=== PATIENT | female | born 1975 | race Caucasian/White ===

== ENCOUNTER 2024-03-13 08:10 | Observation (INO) ==
[~2024-03-13 08:10] MED LIST: Naloxone 0.4 mg VIAL 0.4 mg/ml 1 ml VIAL IV PRN; Ondansetron 4 mg VIAL 2 MG/ML 2 ml VIAL IV PRN; fentaNYL 100 mcg/2 ml 50 MCG/ML VIAL IV PRN
[2024-03-13] MEDS ORDERED: Tranexamic Acid 1 GM/100ML BAG 2,000 MG/200 ML BAG IV ONE (08:33)
[2024-03-13] MEDS ORDERED: ceFAZolin 2 GM PREMIX 2 GM/50 ML BAG ONE (08:33)
[2024-03-13 08:51] LABS: Rapid COVID-19 Molecular Undetected (Undetected)
[2024-03-13] MEDS: Lactated Ringers 1000 ml BAG 1,000 ML IV SCH ×2 (09:08→15:55)
[2024-03-13] MEDS ORDERED: Midazolam 2 mg/2 ml VIAL 1 mg/ml 2 ml VIAL (2 mg) ONE (09:45)
[2024-03-13] MEDS ORDERED: Propofol 10 MG/ML 20 ML BTL ONE ×3 (09:45→13:00)
[2024-03-13] MEDS ORDERED: fentaNYL 100 mcg/2 ml 50 MCG/ML VIAL ONE (09:45)
[2024-03-13] MEDS ORDERED: ROPIVACAINE 5 MG/ML 30 ML BTL (0.5%) ONE (10:30)
[2024-03-13] MEDS ORDERED: ceFAZolin 1 GM in Dextrose 1 GM/50 ML BAG ONE (10:56)
[2024-03-13] MEDS ORDERED: Lidocaine 2% PF 5 ML VIAL ONE (11:22)
[2024-03-13] MEDS ORDERED: Calcium Carb (TUMS) 500 mg CHEW TAB PO PRN (11:24)
[2024-03-13] MEDS ORDERED: Morphine 2 MG/ML SYRINGE IV PRN (11:24)
[2024-03-13] MEDS ORDERED: Lactulose 30 ml UDC PO PRN (11:24)
[2024-03-13] MEDS ORDERED: Ondansetron ODT 4 mg TAB 4 MG TAB PO PRN (11:24)
[2024-03-13] MEDS ORDERED: Magnesium Hydroxide LIQ 30 ML UDC PO PRN (11:24)
[2024-03-13] MEDS ORDERED: Phenylephrine IV 10 MG/ML 1 ml VIAL ONE (11:28)
[2024-03-13] MEDS: Buffered Lidocaine 1% SYRIN 1 ml INTRADERM ONE (16:20)
[2024-03-13] MEDS: ceFAZolin 2 GM PREMIX 2 GM/50 ML BAG IV SCH (16:23)
[2024-03-13] MEDS: Ondansetron 4 mg VIAL 2 MG/ML 2 ml VIAL IV PRN (17:38)
[2024-03-13] MEDS: ceFAZolin *3* GM in NS PREMIX 3 GM/100 ML BAG IV SCH (20:54)
[2024-03-13] MEDS: Magnesium Hydroxide LIQ 30 ML UDC PO SCH (21:03)
[2024-03-13] MEDS ORDERED: ceFAZolin *3* GM in NS PREMIX 3 GM/100 ML BAG IV SCH (22:00)
[2024-03-14 06:59] LABS: Hematocrit 33.7 % (35-45); Hemoglobin 11.7 g/dL (11.5-14.3); Mean Platelet Volume 7.8 fL (7.5-11.2); Platelet Count 219 10^3/uL (150-450)
[2024-03-14 07:16] LABS: Creatinine, Serum 0.54 mg/dL (0.51-0.95); Potassium 3.8 mmol/L (3.5-5.0); eGFR CKD-EPI 114.9 (>60)
[2024-03-14] MEDS: Vitamin THERAPEUTIC TAB PO SCH (09:40)
== END 2024-03-14 14:38 | disposition home or self-care (01) ==
LOC: OR 08:10 → AA 08:10 → SSU 15:58
PROVIDERS: ADMIT Orthopaedic Surgery Adult Reconstructive Orthopaedic Surgery; ATTEND Orthopaedic Surgery Adult Reconstructive Orthopaedic Surgery